=== PATIENT | female | born 2000 | race African-American/Black ===

== ENCOUNTER 2023-05-15 08:02 | Outpatient (OUT) | payer OTHER, SELFPAY | END 2023-05-15 08:03 | disposition home or self-care (01) | LOC: PST 08:03 | PROVIDERS: Visit Provider Orthopaedic Surgery | DX: Z01.818 Encounter for other preprocedural examination (principal); S83.242A Other tear of medial meniscus, current injury, left knee, initial encounter ==

== ENCOUNTER 2023-06-20 09:17 | Outpatient (OUT) | payer OTHER, SELFPAY ==
--- OUTSIDE RECORDS SUMMARY | 2023-06-20 09:20 | XMS_ITS | CCD ---
Demographics Address [address] [place] [address] Preferred Language en Marital Status Single Jew Affiliation Unknown Race Black or Bri rican Ethnic Group Not or Lati no Author Name Unknown Address [address] [facility] [place] [address] Organization [facility] Care Team Providers Care Informal Waiter/Waitress Name Role Phone Unavailable Primary Care Provider Unavailronald e September, Kem Alcala Primary Care Provider September, Kem Alcala Primary Care Provider ANGIE CASILLAS Referring Unavailable SEPTEMBER, KEM Alcala Primary Care Unavailable SEPTEMBER, KEM Alcala Primary Care Unavailable CHARANJIT MCKENNA Admitting Unavailable CHARANJIT MCKENNA Attending Unavailable CHARANJIT MCKENNA Admitting Unavailable SEPTEMBER, KEM Alcala Primary Care Unavailable CHARANJIT MCKENNA Attending Unavailable ANGIE CASILLAS Referring Unavailable SEPTEMBER, KEM Alcala Primary Care Unavailable NONE, XXXX Primary Care Physician Unavailab Janee Toledo Attending Unavailable Janee Dennis Admitting Unavailable KETAN BRITO Attending Unavailable SEPTEMBER, KEM Alcala Primary Care Unavailable Allergies Allergy Classification Reported Allergen(s) Allergy Type Date of Onset Reaction(s) Facility (1 source) No Known Medication Allergies; Translations: [No Known Medication Allergies] Propensity to adverse reactions (disorder) [facility] Repository Medications Current Medications Medication Drug Class(es) Dates Sig (Normalized) Sig (Original) acetaminophen 325 mg / HYDROcodone bitartrate 5 mg oral tablet (3 sources) Opioid Agonist Start: 08-03-2021 End: 08-06-2021 take 1 tablet by mouth every six hours as needed for pain HYDROcodone-acetam inophen (NORCO) 5-325 MG per tablet Indications: 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 20 tablet 0 08/03/2021 08/06/2021 Active Start: 07-06-2021 End: 07-11-2021 HYDROcodone-acetaminophen (N ORCO) 5-325 MG per tablet Indications: Post-operative pain Take 1-2 tablets by mouth every 4-6 hours as needed for Pain for up to 5 days. Intended supply: 3 days. Take lowest dose possible to manage pain 20 tablet 0 07/06/2021 07/11/2021 Active calcium chloride 0.0014 meq/ ml / potassium chloride 0.004 meq/ml / sodium chloride 0.103 meq/ml / sodium lactate 0.028 meq/ml injectable solution (2 sources) Start: 08-03-2021 lactated ringe rs infusion Start: 07-06-2021 lactated ringe rs infusion drospirenone 3 mg / ethinyl estradiol 0.02 mg oral tablet (2 sources) Progestin, Estrogen take 1 tablet by mouth once daily, then take 3 tablets by mouth once drospirenone-ethinyl estradiol (MARNIE) 3-0.02 MG per tablet Take 1 tablet by mouth daily 0 Active naproxen sodium 220 mg oral tablet (3 sources) Nonsteroidal Anti-inflammatory Drug Start: 016 take 220 mg by mouth twice daily as needed for pain Aleve 220 mg, Oral, BID, PRN as needed for pain, Pain - Moderate Start Date: 05/29/15 Status: Ordered 5 ml sodium chloride 9 mg/ml injection (6 sources) Start: 022 0.9 % sodium chloride infusion Start: 08-03-2021 sodium chlorid e flush 0.9 % injection 5-40 mL Start: 07-06-2021 0.9 % sodium c hloride infusion Start: 07-06-2021 sodium chlorid e flush 0.9 % injection 5-40 mL Completed/Discontinued Medications Medication Drug Class(es) Dates Sig (Normalized) Sig (Original) ceFAZolin 2000 mg injection (2 sources) Cephalosporin Antibacterial Start: 08-03-2021 End: 08-03-2021 ceFAZolin (ANCEF) 2000 mg in dextrose 3 % 50 mL IVPB (duplex) Start: 07-06-2021 End: 07-06-2021 ceFAZolin (ANCEF) 2000 mg in dextrose 3 % 50 mL IVPB (duplex) dexamethasone phosphate 10 mg/ml injectable solution (2 sources) Corticosteroid Start: 05-31-2020 End: 05-31-2020 dexamethasone (DECADRON) injection 6 mg Start: 05-31-2020 End: 06-07-2020 take 1 tablet by mouth once daily at breakfast dexamethasone (DECADRON) 6 MG tablet Take 1 tablet by mouth daily (with breakfast) for 7 days 7 tablet 0 05/31/2020 06/07/2020 Active etodolac 400 mg oral tablet (1 source) Nonsteroidal Anti-inflammatory Drug Start: 02-28-2018 End: 05-31-2020 take 1 tablet by mouth twice daily etodolac (LODINE) 400 MG tablet Take 1 tablet by mouth 2 times daily 30 tablet 0 02/28/2018 05/31/2020 Discontinued iopamidol (ISOVUE-370) 76 % injection 75 mL (1 source) Start: 05-31-2020 End: 05-31-2020 iopamidol (ISOVUE-370) 76 % injection 75 mL Problems Active Problems Problem Classification Problem Date Documented Date Episodic/Chronic Allergic reactions (4 sources) H/O: non-drug allergy; Translations: [Allergy, unspecified, initial encounter] Onset: 03-02-2023 02-04-2019 Episodic Joint disorders and dislocations; trauma-related (3 sources) Tear of meniscus of knee 05-29-2015 Episodic Comment on above: bone bruise Other connective tissue disease (1 source) Nontraumatic compartment syndrome of lower limb; Translations: [Nontraumatic compartment syndrome of right lower extremity] Episodic Other lower respiratory disease (1 source) Dyspnea; Translations: [Shortness of breath] Episodic Other nervous system disorders (1 source) Postoperative pain ; Translations: [Other acute postprocedural pain] Episodic Viral infection (1 source) Other specified viral infection; Translations: [COVID-19] Episodic Past or Other Problems Problem Classification Problem Date Documented Da te Episodic/Chronic Superficial injury; contusion (4 sources) Contusion of eyeball and orbital tissues, left eye, initial encounter; Translations: [Contusion of orbital tissue of left eye] Onset: 02-28-2018 02-28-2018 Episodic Results Test Name Value Interpretation Reference Range Facility PAP [id number] 12-24-2022 C. trachomatis rRNA MARITZA+probe Ql (Cvx) Negative Invalid Interpretation Code Negative [facility] Comment on above: Performed By: #### 3 [id number] #### [facility] [address] [place] [address] Cytology report Cyto stain Doc (Cvx/Vag) Note Invalid Interpretation Code [facility] Comment on above: Result Comment: TEST S RESULT FLAG UNITS REF RANGE LAB Clinician Provided Cytology Information Source.............[facility] Other..............Oral Contraceptives No. of containers..01 ThinPrep Vial DIAGNOSIS: 01 NEGATIVE FOR INTRAEPITHELIAL LESION OR MALIGNANCY. Specimen adequacy: 01 Satisfactory for evaluation. Endocervical and/or squamous metaplastic cells (endocervical component) are present. Performed by: Sarahy Lawler, Communication Coordinator (ASC) . 01 Note: Note 01 The Pap smear is a screening test designed to aid in the detection of premalignant and malignant conditions of the uterine cervix. It is not a diagnostic procedure and should not be used as the sole means of detecting cervical cancer. Both false-positive and false-negative reports do occur. Test Methodology: Note 01 This liquid based ThinPrep(R) pap test was screened with the use of an image guided system. . 01 The HPV DNA reflex criteria were not met with this specimen result therefore, no HPV testing was performed. FLAG LEGEND: L-Low Normal,H-High Normal,LL-Alert Low,HH-Alert High <-Panic Low,>-Panic High,A-Abnormal,AA-Critical Abnormal Performed at: [facility] [address] [place] [address] Concepcion Dumont MD, Performed By: #### 3 [id number] #### [facility] [address] [id number] N. gonorrhoeae rRNA MARITZA+probe Ql (Cvx) Negative Invalid Interpretation Code Negative [facility] Comment on above: Result Comment: Perf ormed at: [facility] [address] [place], [place] [id number] MD Julia Javier Performed at: =G [facility] [address] [id number] MD Julia Javier Performed By: #### 3 [id number] #### [facility] [address] [place] [address] PAP [id number] 12-18-2022 Collection Technique BRUSH-SPATULA Normal F [facility] Comment on above: Performed By: #### 3 [id number] #### [facility] [address] [id number] Gynecological Body Site ENDOCERVIX Normal [facility] Comment on above: Performed By: #### 3 [id number] #### [facility] [address] [place] [address] Other Patient Information OC Normal [facility] Comment on above: Performed By: #### 3 [id number] #### [facility] [address] [id number] Previous Cytology ATYPICAL Normal [facility] Comment on above: Performed By: #### 3 [id number] #### [facility] [address] [place] [address] Previous Treatment NONE Normal [facility] Comment on above: Performed By: #### 3 [id number] #### [facility] [address] [id number] Physician Orderon 12-18-2022 Physician Order [id number]# 1.00CD:127 Normal [facility] Reference Laboratory Testing Ordered By: Sary Yung on 12-14-2021 Test Code 618854 Invalid Interpretation Code [facility] SendOuts Test Name IG PAP CTNG HPV Invalid Interpretation Code [facility] CHEMISTRYOrdered By: Jania quintana on 09-10-2021 Albumin DL <= 20 mg/L (U) [Mass/Vol] 731.0 microgram/mL Invalid Interpretation Code [facility] Chem S Comment on above: Result Comment: resu lt verified by dilution.jlp CHEMISTRYOrdered By: SYSTEM SYSTEM on 09-10-2021 Anion gap [Moles/Vol] 13 mmol/L Normal 6 - 16 mEq/L F C Remisol Calcium [Mass/Vol] 9.3 mg/dL Normal 8.9 - 11. 1 mg/dL [facility] Remisol Chloride [Moles/Vol] 100 mmol/L Low 101 - 1 11 mmol/L FT Remisol CO2 [Moles/Vol] 27 mmol/L Normal 21 - 31 mmol/L [facility] Remisol Creatinine [Mass/Vol] 1.0 mg/dL Normal 0.5 - 1.3 mg/dL [facility] Remisol GFR/1.73 sq M.predicted among blacks MDRD (S/P/Bld) [Vol rate/Area] mL/min/1.73 m2 Normal >=59mL/min/1 .73 m2 [facility] Chem S GFR/1.73 sq M.predicted among non-blacks MDRD (S/P/Bld) [Vol rate/Area] mL/min/1.73 m2 Normal >=59mL/min/1 .73 m2 [facility] Chem S Glucose [Mass/Vol] 83 mg/dL Normal 55 - 199 mg/dL [facility] Remisol Potassium [Moles/Vol] 4.0 mmol/L Normal 3.5 - 5.3 mmol/L FT Remisol Sodium [Moles/Vol] 136 mmol/L Normal 135 - 145 mmol/L FT Remisol Urea nitrogen [Mass/Vol] 10 mg/dL Normal 5 - 21 mg/dL FT Rem[facility] Urea nitrogen/Creatinine [Mass ratio] 10 mg/mg Normal 10 - 20 FT Remisol HEMATOLOGYOrdered By: SYSTEM SYSTEM on 09-10-2021 Basophils/100 WBC (Bld) 0.4 % Normal 0.0 - 2.0 % [facility] HemeAutoSS Basophils/Leukocytes Auto (Bld) [Pure # fraction] 0.0 E9/L Normal 0.0 - 0.2 E9/L [facility] Eosinophils/100 WBC (Bld) 4.0 % Normal 0.0 - 8.0 % [facility]eAutoSS Eosinophils/Leukocyte s Auto (Bld) [Pure # fraction] 0.3 E9/L Normal 0.0 - 0.5 E9/L [facility] Lymphocytes/100 WBC (Bld) 19.9 % Normal 14.0 - 50.0 % [facility]eAutoSS Lymphocytes/Leukocyte s Auto (Bld) [Pure # fraction] 1.3 E9/L Normal 1.0 - 4.0 E9/L [facility] Monocytes/100 WBC (Bld) 8.1 % Normal 4.0 - 14.0 % [facility]eAutoSS Monocytes/Leukocytes Auto (Bld) [Pure # fraction] 0.5 E9/L Normal 0.2 - 1.0 E9/L [facility] Neutrophils/100 WBC (Bld) 67.6 % Normal 36.0 - 75.0 % [facility]eAutoSS Neutrophils/Leukocyte s Auto (Bld) [Pure # fraction] 4.5 E9/L Normal 2.0 - 7.5 E9/L [facility] HEMATOLOGYOrdered By: Christine Woodson on 09-10-2021 Erythrocyte distribution width (RBC) [Ratio] 11.7 % Normal 10.9 - 14.2 % [facility]eAuto[facility] Hematocrit (Bld) [Volume fraction] 41.4 % Normal 34.0 - 46.0 % [facility]eAuto[facility] Hemoglobin (Bld) [Mass/Vol] 14.3 g/dL Normal 12.0 - 16.0 gm/dL [facility] MCH (RBC) [Entitic mass] 30.5 pg Normal 27.0 - 34.0 pg [facility] MCHC (RBC) [Mass/Vol] 34.7 g/dL Normal 31.4 - 36.0 gm/dL [facility] MCV (RBC) [Entitic vol] 88.0 fL Normal 80.0 - 100.0 fL [facility] Platelet mean volume (Bld) [Entitic vol] 8.6 fL Normal 6.4 - 10.8 fL FT HemeAutoSS Platelets (Bld) [#/Vol] 186.0 E9/L Normal 150.0 - 500.0 E9/L FT HemeAutoSS RBC (Bld) [#/Vol] 4.7 E12/L Normal 4.3 - 5.9 E12/L FT HemeAutoSS WBC corrected for nucl RBC Auto (Bld) [#/Vol] 6.6 E9/L Normal 4.0 - 11.0 E9/L FT HemeAutoSS HCG, ,Urineon 08-03 Beta HCG ( test) Ql (U) Negative Normal NEG [facility] Comment on above: Performed By: #### U HCG #### [facility] [address] [place] [address] Actuarial Mathematician: Tucker Moya MD , Urineon Beta HCG ( test) Ql (U) Negative NEGATIVE [facility] [id number] 08-03-2021 SARS-CoV-2 (COVID-19) RNA MARITZA+probe Ql (Unsp spec) Not detected Normal NOTDET [facility] Comment on above: Result Comment: Rapid NAAT: The specimen is NEGATIVE for SARS-CoV-2, the novel coronavirus associated with COVID-19. The ID NOW COVID-19 assay is designed to detect the virus that causes COVID-19 in patients with signs and symptoms of infection who are suspected of COVID-19. An individual without symptoms of COVID-19 and who is not shedding SARS-CoV-2 virus would expect to have a negative (not detected) result in this assay. Negative results should be treated as presumptive and, if inconsistent with clinical signs and symptoms or necessary for patient management, should be tested with an alternative molecular assay. Negative results do not preclude SARS-CoV-2 infection and should not be used as the sole basis for patient management decisions. Fact sheet for Healthcare Providers: https://www.fda.gov/media/193145/download Fact sheet for Patients: https://www.fda.gov/media/166716/download Methodology: Isothermal Nucleic Acid Amplification Performed By: #### C OVRB #### [facility] [address] [place] [address] Actuarial Mathematician: Tucker Moya MD HCG, ,Urineon 07-06 Beta HCG ( test) Ql (U) Negative Normal NEG [facility] Comment on above: Performed By: #### U HCG #### [facility] [address] [place] [address] Actuarial Mathematician: Tucker Moya MD , Urineon 2 Beta HCG ( test) Ql (U) Negative NEGATIVE [facility] [id number] 07-06-2021 SARS-CoV-2 (COVID-19) RNA MARITZA+probe Ql (Unsp spec) Not detected Normal NOTDET [facility] Comment on above: Result Comment: Rapid NAAT: The specimen is NEGATIVE for SARS-CoV-2, the novel coronavirus associated with COVID-19. The ID NOW COVID-19 assay is designed to detect the virus that causes COVID-19 in patients with signs and symptoms of infection who are suspected of COVID-19. An individual without symptoms of COVID-19 and who is not shedding SARS-CoV-2 virus would expect to have a negative (not detected) result in this assay. Negative results should be treated as presumptive and, if inconsistent with clinical signs and symptoms or necessary for patient management, should be tested with an alternative molecular assay. Negative results do not preclude SARS-CoV-2 infection and should not be used as the sole basis for patient management decisions. Fact sheet for Healthcare Providers: https://www.fda.gov/media/254022/download Fact sheet for Patients: https://www.fda.gov/media/779244/download Methodology: Isothermal Nucleic Acid Amplification Performed By: #### C OVRB #### [facility] [address] [place] [address] Actuarial Mathematician: Tucker Moya MD EKG 12 Leadon 06-23-2020 Atrial Rate 75 BPM [facility] [employer] Work Phone: P [place] 66 degrees [facility] Work Phone: P-R Interval 122 ms [employer] Phone: Q-T Interval 416 ms [employer] Phone: QRS Duration 90 ms [employer] Phone: QTc Calculation (Bazett) 464 ms [employer] Phone: R [place] 87 degrees [employer] Phone: T [place] 54 degrees [employer] Phone: Ventricular Rate 75 BPM [employer] Phone: Normal sinus rhythm Normal ECG When compared with ECG of 31-MAY-2020 13:24, Premature ventricular complexes are no longer Present Confirmed by CHARANJIT MORA ([id number]) on 06/23/2020 11:02:55 PM [employer] Phone: Wander, pn Incoming Ekg Results From [employer] - 06/23/2020 11:03 PM EST Normal sinus rhythm Normal ECG When compared with ECG of 31-MAY-2020 13:24, Premature ventricular complexes are no longer Present Confirmed by CHARANJIT MORA ([id number]) on 06/23/2020 11:02:55 PM [employer] Phone: Brain Natriuretic Peptideon 05-31-2020 Natriuretic peptide B (Bld) [Mass/Vol] 57 pg/mL <300 [place] Comment on above: Pro-BNP results prabha ot be compared to BNP results. Natriuretic peptide B (Bld) [Mass/Vol] Pro-BNP Reference Range: [facility] meevl [place], [place] Comment on above: Rule Out: <300 [place] Zone: Age <50 300-450 Age 50-75 300-900 Age >75 300-1800 Usually represents mild to moderate HF but other cardiopulmonary causes cannot be ruled out. Rule In: Age <50 >450 Age 50-75 >900 Age >75 >1800 CBC Auto Differentialon 05-13 Basophils (Bld) [#/Vol] 10*3/uL [facility] [place], [place] Basophils/100 WBC (Bld) 0 % 0 - 2 % [place] Differential Type NOT REPORTED [place] Eosinophils (Bld) [#/Vol] 0.14 10*3/uL [place] Eosinophils/100 WBC (Bld) 2 % 1 - 4 % [place] Erythrocyte distribution width (RBC) [Ratio] 11.1 % Low 11.8 - 14.4 % [place] Hematocrit (Bld) [Volume fraction] 40.8 % 36.3 - 47.1 % [place] Hemoglobin (Bld) [Mass/Vol] 13.6 g/dL 11.9 - 15.1 g/dL [place] Immature granulocytes (Bld) [#/Vol] 0 % 0 [place] Immature granulocytes (Bld) [#/Vol] 10*3/uL [place] Interpretation and review of laboratory results Abnormal [place] Lymphocytes (Bld) [#/Vol] 1.60 10*3/uL [place] Lymphocytes/100 WBC (Bld) 19 % Low 25 - 45 % [place] MCH (RBC) [Entitic mass] 29.4 pg 25.2 - 33.5 pg [place] MCHC (RBC) [Mass/Vol] 33.3 g/dL 28.4 - 34.8 g/dL [place] MCV (RBC) [Entitic vol] 88.3 fL 82.6 - 102.9 fL [place] Monocytes (Bld) [#/Vol] 0.56 10*3/uL [place] Monocytes/100 WBC (Bld) 7 % 2 - 8 % [place] Platelet mean volume (Bld) [Entitic vol] 9.3 fL 8.1 - 13.5 fL [place] Platelets (Bld) [#/Vol] NOT REPORTED [place] Platelets (Bld) [#/Vol] 307 10*3/uL [place] RBC (Bld) [#/Vol] 4.62 10*6/uL 3.95 - 5.1 1 m/uL [place] RBC morphology finding Nom (Bld) NOT REPORTED [place] Segmented neutrophils/100 WBC (Bld) 72 % High 34 - 64 % [place] Segs Absolute 5.92 [place] WBC (Bld) [#/Vol] 0.0 10*3/uL 0.0 per 10 0 WBC [place] WBC (Bld) [#/Vol] 8.3 10*3/uL [place] WBC Morphology NOT REPORTED [place] COVID-19, PCRon 05-31-2020 Interpretation and review of laboratory results Abnormal [place] SARS-CoV-2, Rapid DETECTED Abnormal Not Detected [place] Comment on above: Rapid NAAT: The specimen is POSITIVE for SARS-Cov-2, the novel coronavirus associated with COVID-19. This test has been authorized by the FDA under an Emergency Use Authorization (EUA) for use by authorized laboratories. The ID NOW COVID-19 assay is designed to detect the virus that causes COVID-19 in patients with signs and symptoms of infection who are suspected of COVID-19. An individual without symptoms of COVID-19 and who is not shedding SARS-CoV-2 virus would expect to have a negative (not detected) result in this assay. Fact sheet for Healthcare Providers: https://www.fda.gov/media/351815/download Fact sheet for Patients: https://www.fda.gov/media/394592/download Methodology: Isothermal Nucleic Acid Amplification Results reported to the appropriate Health Department Source .NASOPHARYNGEAL SWAB [place], [place] CT CHEST PULMONARY EMBOLISM W CONTRASTon 05-31-2020 [place], pn Incoming Radiant Results From [employer] - 05/31/2020 2:57 PM EST EXAMINATION: CTA OF THE CHEST 05/31/2020 2:29 pm TECHNIQUE: CTA of the chest was performed after the administration of intravenous contrast. Multiplanar reformatted images are provided for review. MIP images are provided for review. Dose modulation, iterative reconstruction, and/or weight based adjustment of the mA/kV was utilized to reduce the radiation dose to as low as reasonably achievable. COMPARISON: None. HISTORY: ORDERING SYSTEM PROVIDED HISTORY: chest pain, sob, elevated d dimer Decision Support Exception->Emergency Medical Condition (MA) FINDINGS: Pulmonary Arteries: Pulmonary arteries are adequately opacified for evaluation. No evidence of intraluminal filling defect to suggest pulmonary embolism. Main pulmonary artery is normal in caliber. Mediastinum: No evidence of mediastinal lymphadenopathy. The heart and pericardium demonstrate no acute abnormality. There is no acute abnormality of the thoracic aorta. Lungs/pleura: The lungs are without acute process. No focal consolidation or pulmonary edema. No evidence of pleural effusion or pneumothorax. Upper Abdomen: Limited images of the upper abdomen are unremarkable. Soft Tissues/Bones: No significant osseous or soft tissue abnormality. IMPRESSION: Unremarkable CTA chest with no evidence of pulmonary embolism and clear lungs. [place] EXAMINATION: CTA OF THE CHEST 05/31/2020 2:29 pm TECHNIQUE: CTA of the chest was performed after the administration of intravenous contrast. Multiplanar reformatted images are provided for review. MIP images are provided for review. Dose modulation, iterative reconstruction, and/or weight based adjustment of the mA/kV was utilized to reduce the radiation dose to as low as reasonably achievable. COMPARISON: None. HISTORY: ORDERING SYSTEM PROVIDED HISTORY: chest pain, sob, elevated d dimer Decision Support Exception->Emergency Medical Condition (MA) FINDINGS: Pulmonary Arteries: Pulmonary arteries are adequately opacified for evaluation. No evidence of intraluminal filling defect to suggest pulmonary embolism. Main pulmonary artery is normal in caliber. Mediastinum: No evidence of mediastinal lymphadenopathy. The heart and pericardium demonstrate no acute abnormality. There is no acute abnormality of the thoracic aorta. Lungs/pleura: The lungs are without acute process. No focal consolidation or pulmonary edema. No evidence of pleural effusion or pneumothorax. Upper Abdomen: Limited images of the upper abdomen are unremarkable. Soft Tissues/Bones: No significant osseous or soft tissue abnormality. [place] Unremarkable CTA chest with no evidence of pulmonary embolism and clear lungs. [place] Comprehensive Metabolic Pane jayme 05-31-2020 Albumin [Mass/Vol] 4.4 g/dL 3.5 - 5.2 g/dL [place] Albumin/Globulin [Mass ratio] 1.3 {ratio} [place] ALP [Catalytic activity/Vol] 64 U/L 35 - 104 U/L [place] ALT [Catalytic activity/Vol] 18 U/L 5 - 33 U/L [place] Anion gap [Moles/Vol] 9 mmol/L 9 - 17 mmol/L [place] AST [Catalytic activity/Vol] 22 U/L <32 [place] Bilirubin Ql (U) 0.50 mg/dL 0.3 - 1.2 mg/dL [place] Bun/Cre Ratio 12 [place] Calcium [Mass/Vol] 9.4 mg/dL 8.6 - 10. 4 mg/dL [place] Chloride [Moles/Vol] 102 mmol/L 98 - 10 7 mmol/L [place] CO2 [Moles/Vol] 25 mmol/L 20 - 31 mmol/L [place] Creatinine [Mass/Vol] 0.91 mg/dL High 0.5 - 0.9 mg/dL [place] GFR >60 >60 mL/min [place] GFR Non- >60 >60 mL/min [place] Glucose [Mass/Vol] 87 mg/dL 70 - 99 mg/dL [place] Interpretation and review of laboratory results Abnormal [place] Potassium [Moles/Vol] 4.0 mmol/L 3.7 - 5.3 mmol/L [place] Protein [Mass/Vol] 7.9 g/dL 6.4 - 8.3 g/dL [place] Sodium [Moles/Vol] 136 mmol/L 135 - 144 mmol/L [place] Urea nitrogen [Mass/Vol] 11 mg/dL 6 - 20 mg/dL [place] D-dimer, quantitativeon 05-13 D-Dimer, Quant 3.78 [place], [place] Comment on above: When combined with a low clinical probability, a D dimer value of <0.50 mg/L FEU is considered negative for DVT and PE (negative predictive value of 98%, sensitivity of 97%). If this test is not being used to help rule out DVT and PE, then the following reference range should be utilized: 0.00 - 0.59 mg/L FEU. The D-Dimer assay is intended for use as an aid in the diagnosis of venous thromboembolism (DVT and PE) and the results should be interpreted in conjunction with the patient's medical history, clinical presentation, and other findings. Elevated levels of D-dimer activity can be seen in any state of coagulation activation and is not recommended in patients with therapeutic dose anticoagulant therapy for >24 hours, fibrinolytic therapy within the previous 7 days, trauma or surgery within the previous 4 weeks, disseminated malignancies, aortic aneurysm, sepsis, severe infections, pneumonia, severe skin infections, liver cirrhosis, advanced age, coronary disease, diabetes, and . A very low percentage of patients with DVT may yield D-dimer results below the cutoff of 0.5 mg/L FEU. This is known to be more prevalent in patients with distal DVT. Interpretation and review of laboratory results Abnormal [place] Metabolic Panelon 05-31-2020 GFR/1.73 sq M predicted among non-blacks MDRD (S/P/Bld) [Vol rate/Area] [place] Comment on above: Average GFR for 20-2 9 years old: 116 mL/min/1.73sq m Chronic Kidney Disease: <60 mL/min/1.73sq m Kidney failure: <15 mL/min/1.73sq m eGFR calculated using average adult body mass. Additional eGFR calculator available at: http://www.Comparisign.com/multiple_crcl_2012.htm Stage 1: Some kidney damage normal GFR Stage 2: Mild kidney damage GFR 60-89 Stage 3: Moderate kidney damage GFR 30-59 Stage 4: Severe kidney damage GFR 15-29 Stage 5: Severe kidney damage GFR <15 ESRD - chronic treatment by dialysis or transplant Microscopic Urinalysison Amorphous, UA NOT REPORTED None [place], [place] Bacteria, UA 2+ Abnormal None [place], [place] Casts UA NOT REPORTED /LPF [place] Crystals, UA NOT REPORTED None /HPF [place] Epithelial Cells UA 5 TO 10 [place] Interpretation and review of laboratory results Abnormal [place] Mucus, UA TRACE Abnormal None [place] Other Observations UA NOT REPORTED NOT REQ. [facility] [place] [place] RBC (U) [#/Vol] 0 TO 2 [place] Renal Epithelial, UA NOT REPORTED 0 /HPF [place], [place] Trichomonas, UA NOT REPORTED None [facility] [place] WBC, UA 2 TO 5 [place] Yeast, UA NOT REPORTED None [place] Otheron 05-31-2020 SARS-CoV-2 [place] , Urineon Beta HCG ( test) Ql (U) Negative NEGATIVE [place] Comment on above: Specimens with hCG l evels near the threshold of the test (25 mIU/mL) may give a negative or indeterminate result. In such cases, another test should be performed with a new specimen in 48-72 hours. If early is suspected clinically in this setting, correlation with quantitative serum b-hCG level is suggested. [facility] has confirmed the use of plasma for this test. This has not been cleared or approved by the U.S. Food and Drug Administration. The FDA has determined that such clearance is not necessary. Troponinon 05-31-2020 Troponin I.cardiac [Mass/Vol] NOT REPORTED [place] Troponin T.cardiac [Mass/Vol] NOT REPORTED <0.03 ng/mL [place] Troponin, High Sensitivity <6 0 - 14 ng/L [place] Comment on above: High Sensitivity Troponin values cannot be compared with other Troponin methodologies. Patients with high levels of Biotin oral intake (i.e >5mg/day) may have falsely decreased Troponin levels. Samples collected within 8 hours of biotin intake may require additional information for diagnosis. Urinalysis Reflex to Culture on 05-31-2020 Bilirubin Urine Negative NEGATIVE [place] Color, UA YELLOW YELLOW [place] Glucose, Ur Negative NEGATIVE [place] Interpretation and review of laboratory results Abnormal [place] Ketones Ql (U) Negative NEGATIVE [place] Leukocyte esterase Test strip Ql (U) Negative NEGATIVE [place] Nitrite, Urine Negative NEGATIVE [place] pH, UA 6.0 [place] Protein (U) [Mass/Vol] 2+ Abnormal NEGATIVE [place] Specific [place], UA >1.030 [place] Turbidity UA CLEAR CLEAR [place] Urinalysis Comments NOT REPORTED [place] Urine Hgb Negative NEGATIVE [place] Urobilinogen, Urine Normal Normal [place] XR CHEST PORTABLEon 05-31-19 EXAMINATION: ONE XRA Y VIEW OF THE CHEST 05/31/2020 1:11 pm COMPARISON: None. HISTORY: ORDERING SYSTEM PROVIDED HISTORY: SOB TECHNOLOGIST PROVIDED HISTORY: SOB FINDINGS: The cardiomediastinal silhouette is within normal limits. There is no consolidation, pneumothorax or evidence for edema. No evidence for effusion. No acute osseous abnormality is identified. [place], [employer] Incoming Radiant Results From [employer] - 05/31/2020 1:19 PM EST EXAMINATION: ONE XRAY VIEW OF THE CHEST 05/31/2020 1:11 pm COMPARISON: None. HISTORY: ORDERING SYSTEM PROVIDED HISTORY: SOB TECHNOLOGIST PROVIDED HISTORY: SOB FINDINGS: The cardiomediastinal silhouette is within normal limits. There is no consolidation, pneumothorax or evidence for edema. No evidence for effusion. No acute osseous abnormality is identified. IMPRESSION: No acute airspace disease identified. [place] No acute airspace disease identified. [place] Vital Signs Date Time Vital Sign Value Performing Clinician Faci lity 08-03-2021 13:00-0400 Body temperature 98.01 [degF] Charanjit Mckenna MD Work Phone: [facility] 08-03-2021 13:00-0400 Diastolic blood pressure 72 mm[Hg] Charanjit Mckenna MD Work Phone: [facility] 08-03-2021 13:00-0400 Respiratory rate 16 /min Charanjit Mckenna MD Work Phone: [facility] 08-03-2021 13:00-0400 SaO2% (BldA) [Mass fraction] 98 % Charanjit Mckenna MD Work Phone: [facility] 08-03-2021 13:00-0400 Systolic blood pressure 110 mm[Hg] Charanjit Mckenna MD Work Phone: [facility] 08-03-2021 12:45-0400 Heart rate 68 /min Charanjit Mckenna MD Work Phone: [facility] 08-03-2021 10:13-0400 Body height 165.1 cm Charanjit Mckenna MD Work Phone: [facility] 08-03-2021 10:13-0400 Body mass index (BMI) [Ratio] 23.06 kg/m2 Charanjit Mckenna MD Work Phone: [facility] 08-03-2021 10:13-0400 Body weight 62.87 kg Charanjit Mckenna MD Work Phone: [facility] 07-06-2021 14:30-0500 Diastolic blood pressure 73 mm[Hg] Charanjit Mckenna MD Work Phone: [facility] 07-06-2021 14:30-0500 Heart rate 60 /min Charanjit Mckenna MD Work Phone: [facility] 07-06-2021 14:30-0500 Respiratory rate 15 /min Charanjit Mckenna MD Work Phone: [facility] 07-06-2021 14:30-0500 SaO2% (BldA) [Mass fraction] 96 % Charanjit Mckenna MD Work Phone: [facility] 07-06-2021 14:30-0500 Systolic blood pressure 119 mm[Hg] Charanjit Mckenna MD Work Phone: [facility] 07-06-2021 13:50-0500 Body temperature 97.59 [degF] Charanjit Mckenna MD Work Phone: [facility] 07-06-2021 10:45-0500 Body height 165.1 cm Charanjit Mckenna MD Work Phone: [facility] 07-06-2021 10:45-0500 Body mass index (BMI) [Ratio] 23.73 kg/m2 Charanjit Mckenna MD Work Phone: [facility] [employer] 07-06-2021 10:45-0500 Body weight 64.68 kg [facility]jit Mckenna [facility] 05-31-2020 15:26-0500 Pulse [facility] 98 % [facility] [place] 05-31-2020 15:25-0500 BP Diastolic 71 mm[Hg] [facility] [place] [facility] [place] 05-31-2020 15:25-0500 BP Systolic 104 mm[Hg] [facility] [place] [facility] [place] 05-31-2020 15:25-0500 Pulse (Heart Rate) 75 /min [facility] [place] 05-31-2020 15:25-0500 Respiratory Rate 15 /min [facility] [place] 05-31-2020 13:05-0500 Body Temperature 97 [degF] [facility] [place] Encounters Encounter Date Encounter Type Care Provider Facility Start: 03-02-2023 End: 03-02-2023 Emergency department patient visit [facility] Start: 12-18-2022 End: 12-19-2022 ambulatory Janee J Sonny Facility:[facility] Start: 12-18-2022 End: 12-18-2022 Lab Drop off Janee J Sonny [facility] Start: 12-14-2021 End: 12-14-2021 Lab Drop off Janee J Sonny [facility] Start: 09-10-2021 End: 09-10-2021 Lab Drop off ARTURO SMALLWOOD [facility] Start: 08-03-2021 End: 08-03-20[facility]: 08-03-2021 End: 08-03-2021 Subsequent hospital visit by physician Charanjit Mckenna MD Work Phone: [facility] [place] Comment on above: 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) Start: 08-03-2021 End: 08-03-2021 [facility] Start: 07-06-2021 End: 07-06-2021 [facility] Start: 07-06-2021 End: 07-06-2021 Subsequent hospital visit by physician Charanjit Mckenna MD Work Phone: [facility] [place] Comment on above: Post-operative pain Start: 07-06-2021 End: 07-06-2021 [facility] Start: 06-23-2020 End: 06-23-2020 Subsequent hospital visit by physician Kem URIAS EKG Start: 05-31-2020 End: 05-31-2020 Emergency department patient visit [facility] ED Comment on above: COVID-19 (Primary Dx ); Shortness of breath Procedures Date Procedure Procedure Detail Performing Clinician Start: 08-03-2021 Urine test visual color cmprsn meths Charanjit Mckenna MD Work Phone: Start: 07-06-2021 Urine test visual color cmprsn meths Charanjit Mckenna MD Work Phone: Start: 06-23-2020 Ecg routine ecg w/le ast 12 lds w/i&r Felicitas Washington Work Phone: Start: 06-23-2020 EKG REPORT [facility] Scanni [facility] Start: 05-31-2020 Ct thorax w/contrast material Maria Del Rosario Margo Work Phone: Start: 05-31-2020 COVID-19 Maria Del Rosario Wongarmando goncalvesdoroteo Work Phone: Start: 05-31-2020 Urinalysis microscopic only Maria Del Rosario Aragon Work Phone: Start: 05-31-2020 Urine test visual color cmprsn meths Maria Del Rosario Margo Work Phone: Start: 05-31-2020 Urnls dip stick/tabl et rgnt auto w/o microscopy Maria Del Rosario Margo Work Phone: Start: 05-31-2020 Ecg routine ecg w/le ast 12 lds w/i&r Maria Del Rosario Margo Work Phone: Start: 05-31-2020 Assay of troponin quantitative [facility] Work Phone: Start: 05-31-2020 Blood count complete auto&auto difrntl wbc Maria Del Rosario [facility] Work Phone: Start: 05-31-2020 Comprehensive metabo lic panel [facility] Work Phone: Start: 05-31-2020 Fibrin dgradj produc ts d-dimer quantitative [facility] Work Phone: Start: 05-31-2020 Natriuretic peptide [facility] anyi WongMargo Work Phone: Start: 05-31-2020 Radiologic exam ches t single view Maria Del Rosario Margo Work Phone: Start: 02-04-2019 Arthroscopy of knee HE SMALLWOOD Comment on above: right Start: 05-30-2015 right knee arthrosco py with acl repair ARTURO SMALLWOOD Plan of Treatment Date Care Activity Detail Author Start: 10-13-2021 DTaP/Tdap/Td vaccine (7 - Td or Tdap) DTaP/Tdap/Td vaccine (7 - Td or Tdap) [facility] Start: 08-03-2021 End: 08-03-2021 Dcmprn fasct leg ant&/lat&pst cmprt FASCIOTOMY COMPARTMENT RELEASE LEFT LOWER EXTREMITY COMPARTMENT SYNDROME 08/03/2021 10:54 AM EDT [facility] Start: 07-06-2021 End: 07-06-2021 Open tx trimalleolar ankle fx w/o fixj pst lip ANKLE OPEN REDUCTION INTERNAL FIXATION RIGHT TIBIA PAIN 07/06/2021 12:30 PM EST [facility] Start: 01-10-2021 Influenza vaccination Flu vaccine (# 1) [facility] Start: 2020 Screening for malign ant neoplasm of cervix [facility] Start: 01-11-2020 Influenza vaccination Flu vaccine (# 1) [place] Start: 2018 DTaP/Tdap/Td vaccine (1 - Tdap) DTaP/Tdap/Td vaccine (1 - Tdap) [place] Start: 2015 Screening for Chlamy deisy trachomatis Chlamydia screen [facility] Start: 2014 HIV screening HIV screen [facility] Start: 04-14-2012 Hepatitis A vaccine (2 of 2 - 2-dose series) Hepatitis A vaccine (2 of 2 - 2-dose series) [facility] Start: 04-14-2012 HPV vaccine (3 - 2-d ose series) HPV vaccine (3 - 2-dose series) [facility] Start: 2011 Depression Screen Depression Screen [facility] Start: 2010 HPV vaccine (1 - 2-d ose series) HPV vaccine (1 - 2-dose series) [place] Start: 2004 COVID-19 Vaccine (1) COVID-19 Vaccin e (1) [facility] Start: 2000 Varicella vaccine (1 of 2 - 2-dose childhood series) Varicella vaccine (1 of 2 - 2-dose childhood series) [place] Start: 1999 Hepatitis C screening Hepatitis C sc reen [facility] EKG 12 Lead EKG 12 Lead ECG STAT 05/31/2020 1:24 PM EST [place] Oxygen therapy [Mini mum Data Set] Initiate Oxygen Therapy Protocol Respiratory Care Routine As Needed until discontinued starting 07/06/2021 [facility] Work Phone: Comment on above: As Needed until disc ontinued starting 07/06/2021 Oxygen therapy [Mini mum Data Set] Initiate Oxygen Therapy Protocol Respiratory Care Routine As Needed until discontinued starting 08/03/2021 [facility] Phone: Comment on above: As Needed until disc ontinued starting 08/03/2021 Payers Date Payer Category Payer Unknown [id number] 2018 Unknown [id number] 1999 Unknown [id number] 1999 Unknown [id number] 1999 Unknown [id number] 1999 Unknown [id number] 1999 Unknown [id number] 1999 Unknown [id number] Social History Date Type Detail Facility Start: 02-28-2018 End: 05-31-2020 Tobacco smoking status NHIS [place] Start: 02-28-2018 End: 05-31-2020 Tobacco use and exposure Never used [place] Start: 05-31-2020 End: 08-03-2021 Alcohol intake Current non-drinker of alcohol (finding) [place] Start: 2000 Sex Assigned At Not on file [place], [place] Start: 07-24-2021 End: 08-03-2021 Exposure to SARS-CoV-2 (event) Not sure [facility] Work Phone: Sex Assigned At Female [facility] Tobacco smoking status No Smokin g Status Entered [facility] Tobacco smoking status No Smokin g Status Entered [facility] Clinical Notes 07-06-2021 to 12-18-2022 Caitlin Yung RN - 08/03/2021 1:42 PM Monica Yung RN - 07/26/2021 2:14 PM Raoul Escobedo RN - 07/06/2021 3:06 PM Tania Yung RN - 06/26/2021 3:00 PM EST Note Date & Type Note Facility 12-18-2022 Evaluation + Plan note Diagnostic Tests PendingPAP [id number] 12/18/22 [facility] 12-14-2021 Evaluation + Plan note Diagnostic Tests PendingHSV Cult & Typing 12/14/21 [facility] 09-10-2021 Evaluation + Plan note Diagnostic Tests PendingUrine Culture 09/10/21 [facility] 08-03-2021 History of Presen t illness Narrative Discharge Criteria Outpatients must meet criteria 1 through 7. Up to restroom, void sufficient amount. Yes 1. Minimum 30 minutes after last dose of sedative medication, minimum 120 minutes after last dose of reversal agent. Yes 2. Systolic BP stable within 20 mmHg for 30 minutes & systolic BP between 90 & 180 or within 10 mmHg of baseline. Yes 3. Pulse between 60 and 100 or within 10 bpm of baseline. Yes 4. Spontaneous respiratory rate >/= 10 per minute. Yes 5. SaO2 >/= 95 or >/= baseline. Yes 6. Able to cough and swallow or return to baseline function. Yes 7. Alert and oriented or return to baseline mental status. Yes 8. Demonstrates controlled, coordinated movements, ambulates with steady gait, or return to baseline activity function. Yes 9. Minimal or no pain or nausea, or at a level tolerable and acceptable to patient. Yes 10. Takes and retains oral fluids as allowed. Yes 11. Procedural / perioperative site stable. Minimal or no bleeding. Yes 12. If GI endoscopy procedure, minimal or no abdominal distention or passing flatus. Yes 13. Written discharge instructions and emergency telephone number provided. Yes 14. Accompanied by a responsible adult. Yes Adult patient discharged from facility without responsible person meets above criteria plus the following: a) remains awake without stimulus for 30 minutes b) oriented appropriate for age c) all vital signs stable d) no significant risk of losing protective reflexes e) able to maintain pre-procedure mobility without assistance f) no nausea or dizziness g) transportation arrangements that do not require patient to operate motor Vehicle. Yes [facility] Preadmission Testing Name: Rebecca Brenner : 2000 Patient (home) Procedure: FASCIOTOMY COMPARTMENT RELEASE - Left Date of Procedure: 08/03/21 Surgeon: Charanjit Mckenna MD Ht: 5'5 Wt: 142lb Wt method: Allergies: No Known Allergies There were no vitals filed for this visit. Patient's last menstrual period was 07/12/2021. Do you take blood thinners? [] Yes [x] No Instructed to stop blood thinners prior to procedure? [] Yes [] No [x] N/A Do you have sleep apnea? [] Yes [x] No Do you have acid reflux ? [] Yes [x] No Do you have hiatal hernia? [] Yes [x] No Do you ever experience motion sickness? [] Yes [x] No Have you had a respiratory infection or sore throat in last 4 weeks before surgery? [] Yes [x] No Do you have poorly controlled asthma or COPD? Difficulty with intubation in past? [] Yes [x] No [] Yes [x] No Do you have a history of angina in the last month or symptomatic arrhythmia? [] Yes [x] No Do you have significant central nervous system disease? [] Yes [x] No Have you had an EKG, labs, or chest xray in last 12 months? If yes provide copies to anesthesia [] Yes [] No [] Lab [] EKG [] CXR Have you had a stress test? [] Yes [x] No When/where: Was it normal? [] Yes [] No Do you or your family have a history of Malignant Hyperthermia? [] Yes [x] No Do you smoke? [] Yes [x] No Please refrain from smoking on the day of surgery. Patient instructed on: [x] NPO Status [x] Meds to Take [x] Ride Home []No Jewelry/Contact Lenses/Nail Latvian [] Prep/Lax/Clear Liquids [] Chlorhexidene DOS Patient Needs [x] HCG [] Blood Sugar [] PT/INR [] T&S COVID Vaccinated? [x] Yes [] No Patient instructed on the pre-operative, intra-operative, and post-operative process? Yes Medication instructions reviewed with patient? Yes documented in this encounter [employer] Phone: 07-06-2021 History of Presen t illness Narrative Discharge Criteria Outpatients must meet criteria 1 through 7. Up to restroom, void sufficient amount. Yes 1. Minimum 30 minutes after last dose of sedative medication, minimum 120 minutes after last dose of reversal agent. Yes 2. Systolic BP stable within 20 mmHg for 30 minutes & systolic BP between 90 & 180 or within 10 mmHg of baseline. Yes 3. Pulse between 60 and 100 or within 10 bpm of baseline. Yes 4. Spontaneous respiratory rate >/= 10 per minute. Yes 5. SaO2 >/= 95 or >/= baseline. Yes 6. Able to cough and swallow or return to baseline function. Yes 7. Alert and oriented or return to baseline mental status. Yes 8. Demonstrates controlled, coordinated movements, ambulates with steady gait, or return to baseline activity function. Yes 9. Minimal or no pain or nausea, or at a level tolerable and acceptable to patient. Yes 10. Takes and retains oral fluids as allowed. Yes 11. Procedural / perioperative site stable. Minimal or no bleeding. Yes 12. If GI endoscopy procedure, minimal or no abdominal distention or passing flatus. Yes 13. Written discharge instructions and emergency telephone number provided. Yes 14. Accompanied by a responsible adult. Yes Adult patient discharged from facility without responsible person meets above criteria plus the following: a) remains awake without stimulus for 30 minutes b) oriented appropriate for age c) all vital signs stable d) no significant risk of losing protective reflexes e) able to maintain pre-procedure mobility without assistance f) no nausea or dizziness g) transportation arrangements that do not require patient to operate motor Vehicle. Yes [facility] Preadmission Testing Name: Rebecca Brenner : 2000 Patient (home) Procedure: POSTERIOR AND DEEP POSTERIOR COMPARTMENT RELEASE RIGHT LEG - Right Date of Procedure: 07/06/21 Surgeon: Charanjit Mckenna MD Ht: 5' 5 (165.1 cm) Wt: 140 lb (63.5 kg) Wt method: Allergies: No Known Allergies Latex Allergy Screening Tool Have you ever had a reaction to or been told by a physician that you have an allergy to latex or natural rubber?: No There were no vitals filed for this visit. Patient's last menstrual period was 06/12/2021. Do you take blood thinners? [] Yes [x] No Instructed to stop blood thinners prior to procedure? [] Yes [] No [x] N/A Do you have sleep apnea? [] Yes [x] No Do you have acid reflux ? [] Yes [x] No Do you have hiatal hernia? [] Yes [x] No Do you ever experience motion sickness? [] Yes [x] No Have you had a respiratory infection or sore throat in last 4 weeks before surgery? [] Yes [x] No Do you have poorly controlled asthma or COPD? Difficulty with intubation in past? [] Yes [x] No [] Yes [x] No Do you have a history of angina in the last month or symptomatic arrhythmia? [] Yes [x] No Do you have significant central nervous system disease? [] Yes [x] No Have you had an EKG, labs, or chest xray in last 12 months? If yes provide copies to anesthesia [] Yes [x] No [] Lab [] EKG [] CXR Have you had a stress test? [] Yes [x] No When/where: Was it normal? [] Yes [] No Do you or your family have a history of Malignant Hyperthermia? [] Yes [x] No Do you smoke? [] Yes [x] No Please refrain from smoking on the day of surgery. Patient instructed on: [x] NPO Status [x] Meds to Take [x] Ride Home [x]No Jewelry/Contact Lenses/Nail Latvian [] Prep/Lax/Clear Liquids [] Chlorhexidene DOS Patient Needs [x] HCG [] Blood Sugar [] PT/INR [] T&S COVID Vaccinated? [x] Yes [] No Patient instructed on the pre-operative, intra-operative, and post-operative process? Yes Medication instructions reviewed with patient? Yes documented in this encounter [employer] Phone: 07-06-2021 Hospital Discharg e miriam Anni, Mary TIGRE Ken - WEB DESIGN INSTRUCTOR - 07/06/2021 SAME DAY SURGERY INSTRUCTIONS 1. Do not drive or operate hazardous machinery for 24 hours. 2. Do not make important personal or business decisions for 24 hours. 3. Do not drink alcoholic beverages. 4. Do not smoke tobacco products. 5. Eat light foods initially (i.e., Jell-O, soups, etc) and drink plenty of fluids. 6. If your bandages become soaked with a bright red blood, place another dressing pad over your bandages. (Do not remove original bandage.) Call your surgeon for further instructions. A small amount of bright red blood is to be expected. 7. Limit your activities. Do not engage in heavy work until your surgeon gives you permission. 8. Report the following signs or any questions regarding your physical condition to your surgeon immediately: Excessive swelling of, or around, the wound area Redness Temperature of 100 (degrees F) or above Excessive pain 9. Call your surgeon, , for any questions regarding your surgery. 10. Call for an appointment to see your surgeon in 1 week. SPECIAL INSTRUCTIONS AND MEDICATIONS 1. Elevate high. 2. Move ankle and knee to improve circulation. 3. Use prescribed pain pill as directed by the doctor. You may use aspirin or Tylenol if you prefer. 4. Keep your dressing on and dry unless instructed differently by your physician. 5. Use ice as instructed. 6. Start knee motion today. 7. Use crutches for at least 2 weeks. 8. Weight bearing status: Partial weight-bearing with crutches 9. Keep incisions dry. Charanjit Mckenna MD 07/06/2021 1:44 PM documented in this encounter [employer] Phone: Evaluation note Diagnosis Post-operative pain Other acute postoperative pain documented in this encounter [employer] Phone: evaluation note* Diagnosis Exertional compartment syndrome of both lower extremities- Primary documented in this encounter [employer] Phone: Hospital course Narrative No data available for this [facility] Instructions* Charanjit Mckenna MD - 08/03/2021 SAME DAY SURGERY INSTRUCTIONS 1. Do not drive or operate hazardous machinery for 24 hours or as long as on pain medication. 2. Do not make important personal or business decisions for 24 hours. 3. Do not drink alcoholic beverages. 4. Do not smoke tobacco products. 5. Eat light foods initially (i.e., Jell-O, soups, etc) and drink plenty of fluids. 6. If your bandages become soaked with a bright red blood, place another dressing pad over your bandages. (Do not remove original bandage.) Call your surgeon for further instructions. A small amount of bright red blood is to be expected. 7. Limit your activities. Do not engage in heavy work until your surgeon gives you permission. 8. Report the following signs or any questions regarding your physical condition to your surgeon immediately: Excessive swelling of, or around, the wound area Redness Temperature of 100 (degrees F) or above Excessive pain 9. Call your surgeon, , for any questions regarding your surgery. 10. Call for an appointment to see your surgeon in 2 weeks. SPECIAL INSTRUCTIONS AND MEDICATIONS 1. Elevate high. 2. Move toes to improve circulation. 3. Use prescribed pain pill as directed by the doctor. You may use ibuprofen or Tylenol if you prefer. 4. Keep your dressing on an dry unless instructed differently by your physician. 5. Use ice as needed to help with swelling and pain relief 6. Remove operative bandages: 08/05. Then, you may shower if wound is clean and dry. 7. 8. Use crutches 9. Weight bearing status: Partial weightbearing 10. Keep incisions dry. Charanjit Mckenna MD 08/03/2021 10:50 AM documented in this [facility] [employer] Phone: [facility] Discharge instructions No data available for this section [facility] No data available for this section [facility] Narrative* Auth/Cert Specialty Diagnoses / Procedures Referred By Mariely t Referred To Contact Diagnoses Pain of right tibia RIGHT TIBIA PAIN Procedures OPEN TX TRIMALLEOLAR ANKLE FX W/O FIX PST LIP POSTERIOR AND DEEP POSTERIOR COMPARTMENT RELEASE RIGHT LEG Charanjit Mckenna MD [address] [facility] [place] [address] [address] [place] [address] Referral ID Status Reason Start Date Expiration Date Visits Re quested Visits Authorized [id number] 1 1 [employer] Phone: reason for visit Narrative* Auth/Cert Specialty Diagnoses / Procedures Referred By Contac t Referred To Contact Diagnoses 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 Try to purchase a pulse oximeter to check your oxygen levels 3 times a day. If they drop below 90% you should return to the closest emergency room. You need to quarantine until cleared and follow-up. * Attachments The following attachments cannot be sent through Care Everywhere. 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 ACP-[employer] Internship Latest Code Status on File Code Status Date Activated Date Inactivated Comments Full Code 07/06/2021 10:40 AM Latest Code Status on File Code Status Date Activated Date Inactivated Comments Full Code 08/03/2021 10:07 AM Full Code 07/06/2021 10:40 AM 07/06/2021 5:07 PM Summary Purpose Family History No Family History Records FoundNo Family History Records FoundNo Family History Records Found Additional Source Comments Reason for Visit (unrecogniz ed section and content) Reason Comments Shortness of Breath started about and ho ur prior to arrival after working out. Chest Pain Ordered Prescriptions (unrec ognized section and content) Prescription Sig Dispensed Refills Start Date End Da te dexamethasone (DECADRON) 6 MG tablet Take 1 tablet by mouth daily (with breakfast) for 7 days 7 tablet 0 05/31/2020 06/07/2020 Prescription Sig Dispensed Refills Start Date End Da te HYDROcodone-acetaminophe n (NORCO) 5-325 MG per tabletIndications:Post-o perative pain Take 1-2 tablets by mouth every 4-6 hours as needed for Pain for up to 3 days. 1-2 tabs by mouth every 4-6 hours as needed for pain. 25 tablet 0 07/06/2021 07/09/2021 HYDROcodone-acetaminophe n (NORCO) 5-325 MG per tabletIndications:Post-o perative pain Take 1-2 tablets by mouth every 4-6 hours as needed for Pain for up to 5 days. Intended supply: 3 days. 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 20 tablet 0 08/03/2021 08/06/2021 Scheduled Active and Recently Administ ered Medications (unrecognized section and content) Medication Order 07/04/2021 07/05/2021 07/06/2021 ceFAZolin (ANCEF) 2000 mg in dextrose 3 % 50 mL IVPB (duplex) (COMPLETED) 2,000 mg, IntraVENous, MONOTYPE MACHINIST TO O.R., 1 dose, On Fri07/06/21 at 1100, Administer within 1 hour prior to incision. Recommend to repeat in 3-4 hours after initial dose if still intra-op., Pre-op (day of surgery) 1225 (New Bag - Prov ider: Liseth Escobedo, CHINO)1255 (Due: Stopped - Provider: Liseth Escobedo RN) sodium chloride flush 0.9 % injection 5-40 mL 5-40 mL, IntraVENous, EVERY 12 HOURS SCHEDULED (2 times per day), First dose on Fri07/06/21 at 1100, For Line Patency: Peripheral IV = 5 mL; Midline or Central Line = 10 mL/lumen. If following IV push medication, administer flush at same rate as the IV push. Flush volume is determined by type of infusion therapy being given. For non-viscous solutions use: Peripheral IV = 5 mL Midline or Central Line = 10 mL/lumen For viscous solutions (i.e. blood components, parenteral nutrition, contrast media, or after obtaining blood sample) use: Peripheral IV = 10 mL Midline or Central Line = 20 mL/lumen, Pre-op (day of surgery) 1100 (Due)2100 (Due) Continuous Medication Order 07/04/2021 07/05/2021 07/06/2021 lactated ringers infusion IntraVENous, at 125 mL/hr, CONTINUOUS, Starting on Fri07/06/21 at 1100, Pre-op (day of surgery) 1105 (New Bag - Prov ider: Minda Soria RN)1229 [facility] Provider: Maury Reyes APRN - WEB CONSULTANT) PRN Medication Order 07/04/2021 07/05/2021 07/06/2021 0.9 % sodium chloride infusion 25 mL, IntraVENous, at 100 mL/hr, PRN, If patient receiving piggyback infusions without ordered maintenance IV fluids or with frequent/long duration piggyback infusions, Starting on Fri07/06/21 at 1040, Administer at the same rate as the piggyback being infused., Pre-op (day of surgery) sodium chloride 0.9 % irrigation (COMPLETED) CONTINUOUS PRN, Starting on Fri07/06/21 at 1301, Intra-op 1301 (New Bag - Prov ider: Charanjit Mckenna MD - Comment: poured onto sterile field) sodium chloride flush 0.9 % injection 5-40 mL 5-40 mL, IntraVENous, PRN, Line Care, Starting on Fri07/06/21 at 1040, For Line Patency: Peripheral IV = 5 mL; Midline or Central Line = 10 mL/lumen. If following IV push medication, administer flush at same rate as the IV push. Flush volume is determined by type of infusion therapy being given. For non-viscous solutions use: Peripheral IV = 5 mL Midline or Central Line = 10 mL/lumen For viscous solutions (i.e. blood components, parenteral nutrition, contrast media, or after obtaining blood sample) use: Peripheral IV = 10 mL Midline or Central Line = 20 mL/lumen, Pre-op (day of surgery) Scheduled Medication Order 08/01/2021 08/02/2021 08/03/2021 ceFAZolin (ANCEF) 2000 mg in dextrose 3 % 50 mL IVPB (duplex) (COMPLETED) 2,000 mg, IntraVENous, ONCE, 1 dose, On Fri08/03/21 at 1045, Antimicrobial Indications: Surgical Prophylaxis 1035 (New Bag - Prov ider: Manjinder Kurtz RN)1105 (Stopped - Provider: Liseth Escobedo RN) sodium chloride flush 0.9 % injection 5-40 mL 5-40 mL, IntraVENous, EVERY 12 HOURS SCHEDULED (2 times per day), First dose on Fri08/03/21 at 1030, Until Discontinued, For Line Patency: Peripheral IV = 5 mL; Midline or Central Line = 10 mL/lumen. If following IV push medication, administer flush at same rate as the IV push. Flush volume is determined by type of infusion therapy being given. For non-viscous solutions use: Peripheral IV = 5 mL Midline or Central Line = 10 mL/lumen For viscous solutions (i.e. blood components, parenteral nutrition, contrast media, or after obtaining blood sample) use: Peripheral IV = 10 mL Midline or Central Line = 20 mL/lumen, Pre-op (day of surgery) 1030 (Due)2100 (Due) Continuous Medication Order 08/01/2021 08/02/2021 08/03/2021 lactated ringers infusion IntraVENous, at 125 mL/hr, CONTINUOUS, Starting on Fri08/03/21 at 1030, Pre-op (day of surgery) 1026 (New Bag - Prov ider: Caitlin Yung RN)1053 ([facility] - Provider: Cristopher Glaser APRN - WEB CONSULTANT) PRN Medication Order 08/01/2021 08/02/2021 08/03/2021 0.9 % sodium chloride infusion 25 mL, IntraVENous, at 100 mL/hr, PRN, If patient receiving piggyback infusions without ordered maintenance IV fluids or with frequent/long duration piggyback infusions, Starting on Fri08/03/21 at 1006, Administer at the same rate as the piggyback being infused., Pre-op (day of surgery) sodium chloride flush 0.9 % injection 5-40 mL 5-40 mL, IntraVENous, PRN, Starting on Fri08/03/21 at 1006, Until Discontinued, Line Care, For Line Patency: Peripheral IV = 5 mL; Midline or Central Line = 10 mL/lumen. If following IV push medication, administer flush at same rate as the IV push. Flush volume is determined by type of infusion therapy being given. For non-viscous solutions use: Peripheral IV = 5 mL Midline or Central Line = 10 mL/lumen For viscous solutions (i.e. blood components, parenteral nutrition, contrast media, or after obtaining blood sample) use: Peripheral IV = 10 mL Midline or Central Line = 20 mL/lumen, Pre-op (day of surgery) Care Teams (unrecognized sec tion and content) Informal Waiter/Waitress Relationship Specialty Start Date End Date [address] [address] PCP - General 06/23/20 Informal Waiter/Waitress Relationship Specialty Start Date End Date [place], [address] [address] PCP - General 06/23/20 INFORMATION SOURCE (unrecogn ized section and content) DATE CREATED AUTHOR 08/04/2021 Christine mcfarland DATE CREATED AUTHOR AUTHOR'S ORGANIZ ATION 12/25/2022 [facility] DATE CREATED AUTHOR AUTHOR'S ORGANIZ ATION 03/03/2023 Christine jefferson FOR RECORDS PERTAINING TO PATIENTS WHO ARE OR HAVE BEEN ENROLLED IN A CHEMICAL DEPENDENCY/SUBSTANCEABUSE PROGRAM, SOME INFORMATION MAY BE OMITTED. This clinical summary was aggregated from multiple sources. Caution should be exercised in using it in the provision of clinical care. This summary normalizes information from multiple sources, and as a consequence, information in this document may materially change the coding, format and clinical context of patient data. In addition, data may be omitted in some cases. CLINICAL DECISIONS SHOULD BE BASED ON THE PRIMARY CLINICAL RECORDS. [facility] [employer] [facility]. provides no warranty or guarantee of the accuracy or completeness of information in this document.
== END 2023-06-20 09:18 | disposition home or self-care (01) ==
LOC: PST 09:18
PROVIDERS: Visit Provider Orthopaedic Surgery
DX: Z01.818 Encounter for other preprocedural examination (principal); S83.242A Other tear of medial meniscus, current injury, left knee, initial encounter

== ENCOUNTER 2023-06-23 11:57 | Day surgery (SDC) | payer OTHER, SELFPAY ==
[2023-05-15 08:33] VITALS: BP 104/70; PULSE 77; RESP 20; TEMP 36.2; O2SAT 99; BMI 25.0
[2023-06-23] VITALS (10 sets, daily range): BP systolic 107–130; BP diastolic 64–78; PULSE 63–80; RESP 10–20; TEMP 36.1–36.6; O2SAT 98–100; BMI 25.0
--- OUTSIDE RECORDS SUMMARY | 2023-06-23 12:02 | XMS_ITS | CCD ---
Demographics Address [address] [place] [address] Preferred Language en Marital Status Single Mormon Affiliation Unknown Race Black or Bri rican Ethnic Group Not or Lati no Author Name Unknown Address [address] [place] [address] Organization [facility] Care Team Providers Care Manual Plate Filler Name Role Phone Unavailable Primary Care Provider Unavailronald e September, Kem Alcala Primary Care Provider [phone] September, Kem Alcala Primary Care Provider [phone] ANGIE CASILLAS Referring Unavailable SEPTEMBER, KEM Alcala [...] Medication Allergies] Propensity to adverse reactions (disorder) [facility] Repository Medications Current Medications Medication Drug Class(es) [...] Name Value Interpretation Reference Range Facility PAP [id number] 12-24-2022 C. trachomatis rRNA MARITZA+probe Ql (Cvx) Negative Invalid Interpretation Code Negative [facility] Comment on above: Performed By: #### 3 [id number] #### [facility] [address] [place] [address] Cytology report Cyto stain Doc (Cvx/Vag) Note Invalid Interpretation Code [facility] Comment on above: Result Comment: TEST S RESULT FLAG UNITS REF RANGE LAB Clinician Provided Cytology Information Source.............[employer] Other..............Oral Contraceptives No. of containers..01 ThinPrep Vial DIAGNOSIS: 01 NEGATIVE FOR INTRAEPITHELIAL LESION OR MALIGNANCY. Specimen adequacy: 01 Satisfactory for evaluation. Endocervical and/or squamous metaplastic cells (endocervical component) are present. Performed by: Sarahy Lawler, Ship Erector (ASC) . 01 Note: Note 01 The [...] High <-Panic Low,>-Panic High,A-Abnormal,AA-Critical Abnormal Performed at: [facility] [address] [place] [address] Concepcion Dumont MD, Performed By: #### 3 [id number] #### [facility] [address] [id number] N. gonorrhoeae rRNA MARITZA+probe Ql (Cvx) Negative Invalid Interpretation Code Negative [facility] Comment on above: Result Comment: Perf ormed at: [facility] [address] [place], [place] [id number] MD Julia Javier Performed at: =G [facility] [address] [id number] MD Julia Javier Performed By: #### 3 [id number] #### [facility] [address] [place] [address] PAP [id number] 12-18-2022 Collection Technique BRUSH-SPATULA Normal F [facility] Comment on above: Performed By: #### 3 [id number] #### [facility] [address] [id number] Gynecological Body Site ENDOCERVIX Normal [facility] Comment on above: Performed By: #### 3 [id number] #### [facility] [address] [place] [address] Other Patient Information OC Normal [facility] Comment on above: Performed By: #### 3 [id number] #### [facility] [address] [id number] Previous Cytology ATYPICAL Normal [facility] Comment on above: Performed By: #### 3 [id number] #### [facility] [address] [place] [address] Previous Treatment NONE Normal [facility] Comment on above: Performed By: #### 3 [id number] #### [facility] [address] [id number] Physician Orderon 12-18-2022 Physician Order [id number]# 1.00CD:127 Normal [facility] Reference Laboratory Testing Ordered By: Sary Yung on 12-14-2021 Test Code [id number] Invalid Interpretation Code [facility] SendOuts Test Name IG PAP CTNG HPV Invalid Interpretation Code [facility] CHEMISTRYOrdered By: Jania quintana on 09-10-2021 Albumin DL <= 20 mg/L (U) [Mass/Vol] 731.0 microgram/mL Invalid Interpretation Code [facility] Chem S Comment on above: Result Comment: resu lt verified by [email or web address] CHEMISTRYOrdered By: SYSTEM SYSTEM on 09-10-2021 Anion gap [Moles/Vol] 13 mmol/L Normal 6 - 16 mEq/L F C Remisol Calcium [Mass/Vol] 9.3 mg/dL Normal 8.9 - 11. 1 mg/dL [facility] Remisol Chloride [Moles/Vol] 100 mmol/L Low 101 - 1 11 mmol/L FT Remisol CO2 [Moles/Vol] 27 mmol/L Normal 21 - 31 mmol/L [facility] Remisol Creatinine [Mass/Vol] 1.0 mg/dL Normal 0.5 - 1.3 mg/dL [facility] Remisol GFR/1.73 sq M.predicted among blacks MDRD (S/P/Bld) [Vol rate/Area] mL/min/1.73 m2 Normal >=59mL/min/1 .73 m2 [facility] Chem S GFR/1.73 sq M.predicted among non-blacks MDRD (S/P/Bld) [Vol rate/Area] mL/min/1.73 m2 Normal >=59mL/min/1 .73 m2 [facility] Chem S Glucose [Mass/Vol] 83 mg/dL Normal 55 - 199 mg/dL [facility] Remisol Potassium [Moles/Vol] 4.0 mmol/L Normal 3.5 [...] ( test) Ql (U) Negative Normal NEG [facility] Comment on above: Performed By: #### U HCG #### [facility] [address] [place] [address] Pipe Fitter Helper: Tucker Moya MD , Urineon Beta HCG ( test) Ql (U) Negative NEGATIVE [facility] [id number] 08-03-2021 SARS-CoV-2 (COVID-19) RNA MARITZA+probe Ql (Unsp spec) Not detected Normal NOTDET [facility] Comment on above: Result Comment: Rapid NAAT: [...] management decisions. Fact sheet for Healthcare Providers: https://www.fda.gov/media/698941/download Fact sheet for Patients: https://www.fda.gov/media/854845/download Methodology: Isothermal Nucleic Acid Amplification Performed By: #### C OVRB #### [facility] [address] [place] [address] Pipe Fitter Helper: Tucker Moya MD HCG, ,Urineon 07-06 Beta HCG ( test) Ql (U) Negative Normal NEG [facility] Comment on above: Performed By: #### U HCG #### [facility] [address] [place] [address] Pipe Fitter Helper: Tucker Moya MD , Urineon 2 Beta HCG ( test) Ql (U) Negative NEGATIVE [facility] [id number] 07-06-2021 SARS-CoV-2 (COVID-19) RNA MARITZA+probe Ql (Unsp spec) Not detected Normal NOTDET [facility] Comment on above: Result Comment: Rapid NAAT: [...] management decisions. Fact sheet for Healthcare Providers: https://www.fda.gov/media/546435/download Fact sheet for Patients: https://www.fda.gov/media/659136/download Methodology: Isothermal Nucleic Acid Amplification Performed By: #### C OVRB #### [facility] [address] [place] [address] Pipe Fitter Helper: Tucker Moya MD EKG 12 Leadon 06-23-2020 Atrial Rate 75 BPM [facility] [employer] Work Phone: P [place] 66 degrees [facility] Work Phone: P-R Interval 122 ms [employer] Phone: Q-T Interval 416 ms [employer] Phone: QRS Duration 90 ms [employer] Phone: QTc Calculation (Bazett) 464 ms [employer] Phone: R [place] 87 degrees [employer] Phone: T [place] 54 degrees [employer] Phone: Ventricular Rate 75 BPM [employer] Phone: Normal sinus rhythm Normal ECG When compared with ECG of 31-MAY-2020 13:24, Premature ventricular complexes are no longer Present Confirmed by CHARANJIT MORA ([id number]) on 06/23/2020 11:02:55 PM [employer] Phone: Wander, pn Incoming Ekg Results From Contractually - 06/23/2020 11:03 PM EST Normal sinus rhythm Normal ECG When compared with ECG of 31-MAY-2020 13:24, Premature ventricular complexes are no longer Present Confirmed by CHARANJIT MORA ([id number]) on 06/23/2020 11:02:55 PM [employer] Phone: Brain Natriuretic Peptideon 05-31-2020 Natriuretic peptide B (Bld) [Mass/Vol] 57 pg/mL <300 [place] Comment on above: Pro-BNP results prabha ot be compared to BNP results. Natriuretic peptide B (Bld) [Mass/Vol] Pro-BNP Reference Range: [facility] [email or web address] [place] Comment on above: Rule Out: <300 Holt Zone: Age <50 300-450 Age 50-75 300-900 Age >75 300-1800 Usually represents mild to moderate HF but other cardiopulmonary causes cannot be ruled out. Rule In: Age <50 >450 Age 50-75 >900 Age >75 >1800 CBC Auto Differentialon 05-13 Basophils (Bld) [#/Vol] 10*3/uL [facility] [email or web address] [place] Basophils/100 WBC (Bld) 0 % 0 - 2 % [place] Differential Type NOT REPORTED [place] Eosinophils (Bld) [#/Vol] 0.14 10*3/uL [place] Eosinophils/100 WBC (Bld) 2 % 1 - 4 % [place] Erythrocyte distribution width (RBC) [Ratio] 11.1 % Low 11.8 - 14.4 % [place] Hematocrit (Bld) [Volume fraction] 40.8 % 36.3 - 47.1 % [place] Hemoglobin (Bld) [Mass/Vol] 13.6 g/dL 11.9 - 15.1 g/dL [place] Immature granulocytes (Bld) [#/Vol] 0 % 0 [place] Immature granulocytes (Bld) [#/Vol] 10*3/uL [place] Interpretation and review of laboratory results Abnormal [place] Lymphocytes (Bld) [#/Vol] 1.60 10*3/uL [place] Lymphocytes/100 WBC (Bld) 19 % Low 25 - 45 % [place] MCH (RBC) [Entitic mass] 29.4 pg 25.2 - 33.5 pg [place] MCHC (RBC) [Mass/Vol] 33.3 g/dL 28.4 - 34.8 g/dL [place] MCV (RBC) [Entitic vol] 88.3 fL 82.6 - 102.9 fL [place] Monocytes (Bld) [#/Vol] 0.56 10*3/uL [place] Monocytes/100 WBC (Bld) 7 % 2 - 8 % [place] Platelet mean volume (Bld) [Entitic vol] 9.3 fL 8.1 - 13.5 fL [place] Platelets (Bld) [#/Vol] NOT REPORTED [place] Platelets (Bld) [#/Vol] 307 10*3/uL [place] RBC (Bld) [#/Vol] 4.62 10*6/uL 3.95 - 5.1 1 m/uL [place] RBC morphology finding Nom (Bld) NOT REPORTED [place] Segmented neutrophils/100 WBC (Bld) 72 % High 34 - 64 % [place] Segs Absolute 5.92 [place] WBC (Bld) [#/Vol] 0.0 10*3/uL 0.0 per 10 0 WBC [place] WBC (Bld) [#/Vol] 8.3 10*3/uL [place] WBC Morphology NOT REPORTED [place] COVID-19, PCRon 05-31-2020 Interpretation and review of laboratory results Abnormal [place] SARS-CoV-2, Rapid DETECTED Abnormal Not Detected [place] Comment on above: Rapid NAAT: The [...] this assay. Fact sheet for Healthcare Providers: https://www.fda.gov/media/558883/download Fact sheet for Patients: https://www.fda.gov/media/182802/download Methodology: Isothermal Nucleic Acid Amplification Results reported to the appropriate Health Department Source .NASOPHARYNGEAL SWAB [place] CT CHEST PULMONARY EMBOLISM W CONTRASTon 05-31-2020 [place], pn Incoming Radiant Results From [facility] - 05/31/2020 2:57 PM EST EXAMINATION: CTA [...] evidence of pulmonary embolism and clear lungs. [place] EXAMINATION: CTA OF THE CHEST 05/31/2020 [...] No significant osseous or soft tissue abnormality. [place] Unremarkable CTA chest with no evidence of pulmonary embolism and clear lungs. [place] Comprehensive Metabolic Pane jayme 05-31-2020 Albumin [Mass/Vol] 4.4 g/dL 3.5 - 5.2 g/dL [place] Albumin/Globulin [Mass ratio] 1.3 {ratio} [place] ALP [Catalytic activity/Vol] 64 U/L 35 - 104 U/L [place] ALT [Catalytic activity/Vol] 18 U/L 5 - 33 U/L [place] Anion gap [Moles/Vol] 9 mmol/L 9 - 17 mmol/L [place] AST [Catalytic activity/Vol] 22 U/L <32 [place] Bilirubin Ql (U) 0.50 mg/dL 0.3 - 1.2 mg/dL [place] Bun/Cre Ratio 12 [place] Calcium [Mass/Vol] 9.4 mg/dL 8.6 - 10. 4 mg/dL [place] [Moles/Vol] 102 mmol/L 98 - 10 7 mmol/L [place] CO2 [Moles/Vol] 25 mmol/L 20 - 31 mmol/L [place] Creatinine [Mass/Vol] 0.91 mg/dL High 0.5 - 0.9 mg/dL [place] GFR >60 >60 mL/min [place] GFR Non- >60 >60 mL/min [place] Glucose [Mass/Vol] 87 mg/dL 70 - 99 mg/dL [place] Interpretation and review of laboratory results Abnormal [place] Potassium [Moles/Vol] 4.0 mmol/L 3.7 - 5.3 mmol/L [place] Protein [Mass/Vol] 7.9 g/dL 6.4 - 8.3 g/dL [place] Sodium [Moles/Vol] 136 mmol/L 135 - 144 mmol/L [place] Urea nitrogen [Mass/Vol] 11 mg/dL 6 - 20 mg/dL [place] D-dimer, quantitativeon 05-13 D-Dimer, Quant 3.78 [place] Comment on above: When combined with [...] Interpretation and review of laboratory results Abnormal [place] Metabolic Panelon 05-31-2020 GFR/1.73 sq M predicted among non-blacks MDRD (S/P/Bld) [Vol rate/Area] [place] Comment on above: Average GFR for 20-2 9 years old: 116 mL/min/1.73sq m Chronic Kidney Disease: <60 mL/min/1.73sq m Kidney failure: <15 mL/min/1.73sq m eGFR calculated using average adult body mass. Additional eGFR calculator available at: http://www.[employer]/multiple_crcl_2012.htm Stage 1: Some kidney damage normal GFR Stage 2: Mild kidney damage GFR 60-89 Stage 3: Moderate kidney damage GFR 30-59 Stage 4: Severe kidney damage GFR 15-29 Stage 5: Severe kidney damage GFR <15 ESRD - chronic treatment by dialysis or transplant Microscopic Urinalysison Amorphous, UA NOT REPORTED None [place] Bacteria, UA 2+ Abnormal None [place] Casts UA NOT REPORTED /LPF [place] Crystals, UA NOT REPORTED None /HPF [place] Epithelial Cells UA 5 TO 10 [place] Interpretation and review of laboratory results Abnormal [place] Mucus, UA TRACE Abnormal None [place] Other Observations UA NOT REPORTED NOT REQ. [facility] [place] [place] RBC (U) [#/Vol] 0 TO 2 [place] Renal Epithelial, UA NOT REPORTED 0 /HPF [place] Trichomonas, UA NOT REPORTED None [facility] [place] WBC, UA 2 TO 5 [place] Yeast, UA NOT REPORTED None [place] - [place] Otheron 05-31-2020 SARS-CoV-2 [place] , Urineon Beta HCG ( test) Ql (U) Negative NEGATIVE [place] Comment on above: Specimens with hCG l evels near the threshold of the test (25 mIU/mL) may give a negative or indeterminate result. In such cases, another test should be performed with a new specimen in 48-72 hours. If early is suspected clinically in this setting, correlation with quantitative serum b-hCG level is suggested. [facility] has confirmed the use of plasma for this test. This has not been cleared or approved by the U.S. Food and Drug Administration. The FDA has determined that such clearance is not necessary. Troponinon 05-31-2020 Troponin I.cardiac [Mass/Vol] NOT REPORTED [place] Troponin T.cardiac [Mass/Vol] NOT REPORTED <0.03 ng/mL [place] Troponin, High Sensitivity <6 0 - 14 ng/L [place] Comment on above: High Sensitivity Troponin values cannot be compared with other Troponin methodologies. Patients with high levels of Biotin oral intake (i.e >5mg/day) may have falsely decreased Troponin levels. Samples collected within 8 hours of biotin intake may require additional information for diagnosis. Urinalysis Reflex to Culture on 05-31-2020 Bilirubin Urine Negative NEGATIVE [place] Color, UA YELLOW YELLOW [place] Glucose, Ur Negative NEGATIVE [place] Interpretation and review of laboratory results Abnormal [place] Ketones Ql (U) Negative NEGATIVE [place] Leukocyte esterase Test strip Ql (U) Negative NEGATIVE [place] Nitrite, Urine Negative NEGATIVE [place] pH, UA 6.0 [place] Protein (U) [Mass/Vol] 2+ Abnormal NEGATIVE [place] Specific [place], UA >1.030 [place] Turbidity UA CLEAR CLEAR [place] Urinalysis Comments NOT REPORTED [place] Urine Hgb Negative NEGATIVE [place] Urobilinogen, Urine Normal Normal [place] XR CHEST PORTABLEon 05-31-19 EXAMINATION: ONE XRA Y VIEW OF THE CHEST 05/31/2020 1:11 pm COMPARISON: None. HISTORY: ORDERING SYSTEM PROVIDED HISTORY: SOB TECHNOLOGIST PROVIDED HISTORY: SOB FINDINGS: The cardiomediastinal silhouette is within normal limits. There is no consolidation, pneumothorax or evidence for edema. No evidence for effusion. No acute osseous abnormality is identified. [place], [employer] Incoming Radiant Results From [facility] - 05/31/2020 1:19 PM EST EXAMINATION: ONE XRAY VIEW OF THE CHEST 05/31/2020 1:11 pm COMPARISON: None. HISTORY: ORDERING SYSTEM PROVIDED HISTORY: SOB TECHNOLOGIST PROVIDED HISTORY: SOB FINDINGS: The cardiomediastinal silhouette is within normal limits. There is no consolidation, pneumothorax or evidence for edema. No evidence for effusion. No acute osseous abnormality is identified. IMPRESSION: No acute airspace disease identified. [place] No acute airspace disease identified. [place] Vital Signs Date Time Vital Sign Value Performing Clinician Faci lity 08-03-2021 13:00-0400 Body temperature 98.01 [degF] Charanjit Mckenna MD Work Phone: [facility] 08-03-2021 13:00-0400 Diastolic blood pressure 72 mm[Hg] Charanjit Mckenna MD Work Phone: [facility] 08-03-2021 13:00-0400 Respiratory rate 16 /min Charanjit Mckenna MD Work Phone: [facility] 08-03-2021 13:00-0400 SaO2% (BldA) [Mass fraction] 98 % Charanjit Mckenna MD Work Phone: [facility] 08-03-2021 13:00-0400 Systolic blood pressure 110 mm[Hg] Charanjit Mckenna MD Work Phone: [employer] 08-03-2021 12:45-0400 Heart rate 68 /min Charanjit Mckenna MD Work Phone: [employer] 08-03-2021 10:13-0400 Body height 165.1 cm Charanjit Mckenna MD Work Phone: [employer] 08-03-2021 10:13-0400 Body mass index (BMI) [Ratio] 23.06 kg/m2 Charanjit Mckenna MD Work Phone: [employer] 08-03-2021 10:13-0400 Body weight 62.87 kg Charanjit Mckenna MD Work Phone: [employer] 07-06-2021 14:30-0500 Diastolic blood pressure 73 mm[Hg] Charanjit Mckenna MD Work Phone: [employer] 07-06-2021 14:30-0500 Heart rate 60 /min Charanjit Mckenna MD Work Phone: [employer] 07-06-2021 14:30-0500 Respiratory rate 15 /min Charanjit Mckenna MD Work Phone: [employer] 07-06-2021 14:30-0500 SaO2% (BldA) [Mass fraction] 96 % Charanjit Mckenna MD Work Phone: [employer] 07-06-2021 14:30-0500 Systolic blood pressure 119 mm[Hg] Charanjit Mckenna MD Work Phone: [employer] 07-06-2021 13:50-0500 Body temperature 97.59 [degF] Charanjit Mckenna MD Work Phone: [employer] 07-06-2021 10:45-0500 Body height 165.1 cm Charanjit Mckenna MD Work Phone: [employer] 07-06-2021 10:45-0500 Body mass index (BMI) [Ratio] 23.73 kg/m2 Charanjit Mckenna MD Work Phone: [facility] [employer] 07-06-2021 10:45-0500 Body weight 64.68 kg Charanjit Mckenna MD Work Phone: [employer] [facility] 05-31-2020 15:26-0500 Pulse Oximetry 98 % [employer] , [place] 05-31-2020 15:25-0500 BP Diastolic 71 mm[Hg] [facility] [place] 05-31-2020 15:25-0500 BP Systolic 104 mm[Hg] [facility] [place] 05-31-2020 15:25-0500 Pulse (Heart Rate) 75 /min [facility] [place] 05-31-2020 15:25-0500 Respiratory Rate 15 /min [facility] [place] [email or web address] 05-31-2020 13:05-0500 Body Temperature 97 [degF] [facility] [place] Encounters Encounter Date Encounter Type Care Provider Facility Start: 03-02-2023 End: 03-02-2023 Emergency department patient visit [facility] Start: 12-18-2022 End: 12-19-2022 ambulatory Janee J Sonny Facility:[facility] Start: 12-18-2022 End: 12-18-2022 Lab Drop off Janee J Sonny [facility] Start: 12-14-2021 End: 12-14-2021 Lab Drop off Janee J Sonny [facility] Start: 09-10-2021 End: 09-10-2021 Lab Drop off ARTURO SMALLWOOD [facility] Start: 08-03-2021 End: 08-03-20[facility]: 08-03-2021 End: 08-03-2021 Subsequent hospital visit by physician Charanjit Mckenna MD Work Phone: [facility] [place] Comment on above: 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) Start: 08-03-2021 End: 08-03-2021 [facility] Start: 07-06-2021 End: 07-06-2021 formerly [facility] Start: 07-06-2021 End: 07-06-2021 Subsequent hospital visit by physician Charanjit Mckenna MD Work Phone: [facility] Comment on above: Post-operative pain Start: 07-06-2021 End: 07-06-2021 [facility] Start: 06-23-2020 End: 06-23-2020 Subsequent hospital visit by physician Kem URIAS EKG Start: 05-31-2020 End: 05-31-2020 Emergency department patient visit [facility] ED Comment on above: COVID-19 (Primary Dx [...] Phone: Start: 05-31-2020 Assay of troponin quantitative [facility] Work Phone: Start: 05-31-2020 Blood count complete auto&auto difrntl wbc Maria Del Rosario [facility] Work Phone: Start: 05-31-2020 Comprehensive metabo lic panel [facility] Work Phone: Start: 05-31-2020 Fibrin dgradj produc ts d-dimer quantitative [facility] Work Phone: Start: 05-31-2020 Natriuretic peptide [facility] [employer] Work Phone: Start: 05-31-2020 Radiologic [...] DTaP/Tdap/Td vaccine (7 - Td or Tdap) [facility] Start: 08-03-2021 End: 08-03-2021 Dcmprn fasct leg ant&/lat&pst cmprt FASCIOTOMY COMPARTMENT RELEASE LEFT LOWER EXTREMITY COMPARTMENT SYNDROME 08/03/2021 10:54 AM EDT [facility] Start: 07-06-2021 End: 07-06-2021 Open tx trimalleolar ankle fx w/o fixj pst lip ANKLE OPEN REDUCTION INTERNAL FIXATION RIGHT TIBIA PAIN 07/06/2021 12:30 PM EST [facility] Start: 01-10-2021 Influenza vaccination Flu vaccine (# 1) [facility] Start: 2020 Screening for malign ant neoplasm of cervix [facility] Start: 01-11-2020 Influenza vaccination Flu vaccine (# 1) [place] Start: 2018 DTaP/Tdap/Td vaccine (1 - Tdap) DTaP/Tdap/Td vaccine (1 - Tdap) [place] Start: 2015 Screening for Chlamy deisy trachomatis Chlamydia screen [facility] Start: 2014 HIV screening HIV screen [facility] Start: 04-14-2012 Hepatitis A vaccine (2 of 2 - 2-dose series) Hepatitis A vaccine (2 of 2 - 2-dose series) [facility] Start: 04-14-2012 HPV vaccine (3 - 2-d ose series) HPV vaccine (3 - 2-dose series) [facility] Start: 2011 Depression Screen Depression Screen [facility] Start: 2010 HPV vaccine (1 - 2-d ose series) HPV vaccine (1 - 2-dose series) [place] Start: 2004 COVID-19 Vaccine (1) COVID-19 Vaccin e (1) [facility] Start: 2000 Varicella vaccine (1 of 2 - 2-dose childhood series) Varicella vaccine (1 of 2 - 2-dose childhood series) [place] Start: 1999 Hepatitis C screening Hepatitis C sc reen [facility] EKG 12 Lead EKG 12 Lead ECG STAT 05/31/2020 1:24 PM EST [place] Oxygen therapy [Mini mum Data Set] Initiate Oxygen Therapy Protocol Respiratory Care Routine As Needed until discontinued starting 07/06/2021 [facility] Work Phone: Comment on above: As Needed until disc ontinued starting 07/06/2021 Oxygen therapy [Mini mum Data Set] Initiate Oxygen Therapy Protocol Respiratory Care Routine As Needed until discontinued starting 08/03/2021 [facility] Phone: Comment on above: As Needed until disc ontinued starting 08/03/2021 Payers Date Payer Category Payer Unknown [id number] 2018 Unknown [id number] 1999 Unknown [id number] [id number] [id number] 1999 Unknown [id number] 2.16.8 [id number] 1999 Unknown [id number] 2.16.8 [id number] 1999 Unknown [id number] 2.16.8 [id number] 1999 Unknown [id number] 2.16.8 [id number] 1999 Unknown [id number] 2.16.8 [id number] Social History Date Type Detail Facility Start: 02-28-2018 End: 05-31-2020 Tobacco smoking status NHIS Never smoker [place] Start: 02-28-2018 End: 05-31-2020 Tobacco use and exposure Never used [place] Start: 05-31-2020 End: 08-03-2021 Alcohol intake Current non-drinker of alcohol (finding) [place] Start: 1999 Sex Assigned At Not on file [place] Start: 07-24-2021 End: 08-03-2021 Exposure to SARS-CoV-2 (event) Not sure [facility] Work Phone: Sex Assigned At Female [facility] Tobacco smoking status No Smokin g Status Entered [facility] Tobacco smoking status No Smokin g Status Entered [facility] Clinical Notes 07-06-2021 to 12-18-2022 Caitlin Yung RN - 08/03/2021 1:42 PM Monica Yung RN - 07/26/2021 2:14 PM Raoul Escobedo RN - 07/06/2021 3:06 PM Tania Yung RN - 06/26/2021 3:00 PM EST Note Date & Type Note Facility 12-18-2022 Evaluation + Plan note Diagnostic Tests PendingPAP [id number] 12/18/22 [facility] 12-14-2021 Evaluation + Plan note Diagnostic Tests PendingHSV Cult & Typing 12/14/21 [facility] 09-10-2021 Evaluation + Plan note Diagnostic Tests PendingUrine Culture 09/10/21 [facility] 08-03-2021 History of Presen t illness Narrative [...] require patient to operate motor Vehicle. Yes [facility] Preadmission Testing Name: Rebecca Brenner : 2000 [...] Take [x] Ride Home []No Jewelry/Contact Lenses/Nail [place] [] Prep/Lax/Clear Liquids [] Chlorhexidene DOS Patient Needs [x] HCG [] Blood Sugar [] PT/INR [] T&S COVID Vaccinated? [x] Yes [] No Patient instructed on the pre-operative, intra-operative, and post-operative process? Yes Medication instructions reviewed with patient? Yes documented in this encounter [employer] Phone: 07-06-2021 History of Presen t illness [...] require patient to operate motor Vehicle. Yes [facility] Preadmission Testing Name: Rebecca Brenner : 2000 [...] Take [x] Ride Home [x]No Jewelry/Contact Lenses/Nail [place] [] Prep/Lax/Clear Liquids [] Chlorhexidene DOS Patient Needs [x] HCG [] Blood Sugar [] PT/INR [] T&S COVID Vaccinated? [x] Yes [] No Patient instructed on the pre-operative, intra-operative, and post-operative process? Yes Medication instructions reviewed with patient? 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 [...] 07/06/2021 1:44 PM documented in this encounter [employer] Phone: Evaluation note Diagnosis Post-operative pain Other acute postoperative pain documented in this encounter [employer] Phone: evaluation note* Diagnosis Exertional compartment syndrome of both lower extremities- Primary documented in this encounter [employer] Phone: Hospital course Narrative No data available for this section [facility] Instructions* Charanjit Mckenna MD - [...] MD 08/03/2021 10:50 AM documented [facility] this [facility] Discharge instructions No data available for this section [facility] No data available for this section [facility] N[facility]* Auth/Cert Specialty Diagnoses / Procedures Referred By Mariely t Referred To Contact Diagnoses Pain of right tibia RIGHT TIBIA PAIN Procedures OPEN TX TRIMALLEOLAR ANKLE FX W/O FIX PST LIP POSTERIOR AND DEEP POSTERIOR COMPARTMENT RELEASE RIGHT LEG Charanjit Mcknena MD [address] [facility] [place] [address] [employer] [id number] [place] [address] Referral ID Status Reason Start Date Expiration Date Visits Re quested Visits Authorized [id number] 1 1 [employer] Phone: reason for visit Narrative* Auth/Cert Specialty Diagnoses / Procedures Referred By Contac t Referred To Contact Diagnoses 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 [id number] [place] [id number] Referral ID Status Reason Start Date Expiration Date Visits Re quested Visits Authorized 1 1 [employer] Phone: Discharge Instructions * Instructions* Maria Del [...] Everywhere. * Coronavirus Disease (COVID-19): General Info (Mauritanian) documented in this encounter Assessments Diagnosis COVID-19- Primary Shortness of breath Advance Directives No Advanced Directives Records FoundDocuments on File Type Date Recorded Patient Size Maker Expl anation ACP-Advance Directive ACP-Power of It Analyst Documents on File Type Date Recorded Patient Size Maker Expl anation ACP-Advance Directive ACP-Power of It Analyst Latest Code Status on File Code Status [...] mL IVPB (duplex) (COMPLETED) 2,000 mg, IntraVENous, PAIN MANAGEMENT PHYSICIAN TO O.R., 1 dose, On Fri07/06/21 at [...] Bag - Prov ider: Minda Soria RN)[id number] [facility] Provider: Maury Reyes APRN - [place]) PRN Medication Order 07/04/2021 07/05/2021 07/06/2021 0.9 [...] Bag - Prov ider: Caitlin Yung RN)[id number] ([facility] - Provider: Cristopher Glaser APRN - [place]) PRN Medication Order 08/01/2021 08/02/2021 08/03/2021 0.9 [...] Care Teams (unrecognized sec tion and content) Manual Plate Filler Relationship Specialty Start Date End Date [address] [address] PCP - General 06/23/20 Manual Plate Filler Relationship Specialty Start Date End Date [place], [address] [address] PCP - General 06/23/20 INFORMATION SOURCE (unrecogn ized section and content) DATE CREATED AUTHOR 08/04/2021 Christine mcfarland DATE CREATED AUTHOR AUTHOR'S ORGANIZ ATION 12/25/2022 [facility] DATE CREATED AUTHOR AUTHOR'S ORGANIZ ATION [...] BE BASED ON THE PRIMARY CLINICAL RECORDS. [facility] [employer] [facility]. provides no warranty or guarantee of the accuracy or completeness of information in this document.
[2023-06-23] MEDS: LACTATED RINGER'S SOLUTION 1,000 ML 50 ML IV (12:31)
[2023-06-23 12:57] LABS: HCG Qualitative NEGATIVE (NEGATIVE)
[2023-06-23] MEDS: CEFAZOLIN SODIUM/DEXTROSE,ISO 2 GM/50 ML PIGGYBACK IV (14:11)
[2023-06-23] MEDS: LIDOCAINE HCL 1%-EPINEPHRINE 1:100,000 20 ML MDV 10 ML INJ (15:04)
[2023-06-23] MEDS: BUPIVACAINE HCL 0.5% PF 50 MG/10 ML VIAL 20 ML INJ (15:06)
--- NOTE | 2023-06-23 16:14 | PM.ORPRC ---
Procedure Note Date of procedure: 06/23/23 Pre-op diagnosis: Left knee medial meniscus tear Post-op diagnosis: other (Left knee office fat pad inflammation) Procedure: Operation: Left knee arthroscopic debridement Hoffa's fat pad Operative procedure: After informed consent was obtained the patient was brought to the operating room where general anesthetic was administered. Exam under anesthesia the left knee revealed full range of motion and no instability. The left leg was prepped and draped in the usual sterile fashion. Diagnostic arthroscopy was performed through standard anterior medial and anterolateral arthroscopy portals. Findings in the patellofemoral compartment included in intact articular cartilage. There was no medial plica. In the medial compartment there was an inflamed Hoffa's fat pad. Articular cartilage was intact. Medial meniscus was probed and felt to be normal and visualized both the upper and lower surfaces and no meniscal tear was identified. The thickened inflamed Hoffa's fat pad was debrided with arthroscopic shaver. In the notch the ACL and PCL were intact. The lateral compartment the lateral meniscus was intact as was the articular cartilage. The knee joint was drained of arthroscopy fluid. Portals were closed absorbable suture. The joint and portals were infiltrated with 20 mL 0.5% Marcaine plain mixed with 10 mL 1% lidocaine with epinephrine. Steri-Strips and a sterile dressing were placed. Patient was awakened and brought to the recovery room in stable condition. There were no intraoperative or immediate postoperative complications. Anesthesia: General-LMA Surgeon: Charanjit Moulton Estimated blood loss (mL): 5 Pathology: none sent Condition: stable Disposition: PACU
== END 2023-06-23 16:23 | disposition home or self-care (01) ==
PROVIDERS: Visit Provider Orthopaedic Surgery
PROC: (CPT 1382; principal; 2023-06-23 13:10)
DX: M79.4 Hypertrophy of (infrapatellar) fat pad (principal)
CPT/HCPCS: 29999; 36415; 84703; J0665; J0690; J1100; J1885; J2250; J2405; J2704; J3010